=== PATIENT | male | born 1975 | race Caucasian/White ===

== ENCOUNTER 2016-07-04 10:53 | Inpatient (IN) | payer OTHER ==
[2016-07-04 11:06] VITALS: BMI 30.2
--- NOTE | 2016-07-04 13:43 | HP ---
Admission [facility] Chief Complaint: I need to stop using now. Allergies/Adverse Reactions: Allergies Allergy/AdvReac Type Severity Reaction Status Date / Time No Known Allergies Allergy Verified 07/04/16 13:34 History of Present Illness: pt is a 40yr old male with a history crack/cocaine and cannabis dependence seeking rehab for treatment. Exam Limitations: No Limitations - Ebola screening Have you traveled outside of the country in the last 21 days: No Have you had contact with anyone from an Ebola affected area: No Have you been sick,other than usual withdrawal symptoms: No Do you have a fever: No - Review of Systems Constitutional: Loss of Appetite, Night Sweats, Unintentional Wgt. Loss EENT: reports: No Symptoms Reported Respiratory: reports: Cough Cardiac: reports: No Symptoms Reported GI: reports: Poor Appetite, Poor Fluid Intake : reports: No Symptoms Reported Musculoskeletal: reports: No Symptoms Reported Integumentary: reports: No Symptoms Reported Neuro: reports: No Symptoms reported Endocrine: reports: No Symptoms Reported Hematology: reports: No Symptoms Reported Psychiatric: reports: Judgement Intact, Mood/Affect Appropiate, Orientated x3, Agitated, Anxious Other Systems: Reviewed and Negative Patient History - Patient Medical History Hx Anemia: No Hx Asthma: No Hx Chronic Obstructive Pulmonary Disease (COPD): No Hx Cancer: No Hx Cardiac Disorders: No Hx Congestive Heart Failure: No Hx Hypertension: No Hx Hypercholesterolemia: No Hx Pacemaker: No HX Cerebrovascular Accident: No Hx Seizures: No Hx Dementia: No Hx Diabetes: No Hx Gastrointestinal Disorders: No Hx Liver Disease: No Hx Genitourinary Disorders: No Hx Sexually Transmitted Disorders: No Hx Renal Disease (ESRD): No Hx Thyroid Disease: No Hx Human Immunodeficiency Virus (HIV): No (negative) Hx Hepatitis C: No (negative) Hx Depression: No Hx Suicide Attempt: No Hx Bipolar Disorder: No Hx Schizophrenia: Yes (schizoaffective disorder) - Patient Surgical History Past Surgical History: No Hx Neurologic Surgery: No Hx Cataract Extraction: No Hx Cardiac Surgery: No Hx Lung Surgery: No Hx Breast Surgery: No Hx Breast Biopsy: No Hx Abdominal Surgery: No Hx Appendectomy: No Hx Cholecystectomy: No Hx Genitourinary Surgery: No Hx Orthopedic Surgery: No Anesthesia Reaction: No - PPD History Previous Implant?: Yes Date: 01/22/16 PPD to be Administered?: No - Reproductive History Patient is a Female of Child Bearing Age (11 -55 yrs old): Yes - Smoking Cessation Smoking history: Current every day smoker Have you smoked in the past 12 months: Yes Aproximately how many cigarettes per day: 10 Hx Chewing Tobacco Use: No Initiated information on smoking cessation: Yes 'Breaking Loose' booklet given: 07/04/16 - Substance & Tx. History Hx Alcohol Use: No Hx Substance Use: Yes Substance Use Type: Cocaine Family Disease History - Family Disease History Family Disease History: Other: Son (23 YEARS OLD HEALTHY) Admission Physical Exam [facility] - Vital Signs Vital Signs: Vital Signs - 24 hr 07/04/16 10:57 Temperature 97.5 F L Pulse Rate 79 Respiratory 18 Rate Blood Pressure 108/70 - Physical General Appearance: Yes: Appropriately Dressed, Moderate Distress, Obese, Tremorous, Irritable, Sweating, Anxious HEENTM: Yes: Normal Voice Respiratory: Yes: Lungs Clear, Normal Breath Sounds, No Respiratory Distress Neck: Yes: No masses,lesions,Nodules Breast: Yes: Within Normal Limits, Axillae without masses, No Discharge, No masses Cardiology: Yes: Regular Rhythm, Regular Rate, S1, S2 Abdominal: Yes: Normal Bowel Sounds, Non Tender, Soft Genitourinary: Yes: Within Normal Limits Back: Yes: Normal Inspection Musculoskeletal: Yes: full range of Motion Extremities: Yes: Normal Capillary Refill, Normal Inspection, Non-Tender, Tremors Neurological: Yes: Fully Oriented, Alert, Normal Response Integumentary: Yes: Normal Color Lymphatic: Yes: Within Normal Limits - Diagnostic (1) Cannabis dependence Current Visit: Yes Status: Chronic (2) Crack cocaine use Current Visit: Yes Status: Chronic (3) Nicotine dependence Current Visit: Yes Status: Chronic Qualifiers: Nicotine product type: cigarettes Substance use status: uncomplicated Qualified Code(s): F17.210 - Nicotine dependence, cigarettes, uncomplicated (4) Schizoaffective disorder Current Visit: Yes Status: Chronic Cleared for Admission [facility] - Detox or Rehab [facility] Level of Care: Medically Managed Claeared for Rehab Admission: Yes [facility] Breath Alcohol Content Breath Alcohol Content: 0 Urine Drug Screen - Results Drug Screen Negative: No Urine Drug Screen Results: THC-Marijuana
[2016-07-04] MEDS ORDERED: NICOTINE POLACRILEX 4 MG GUM BUC PRN (13:48)
[2016-07-04] MEDS ORDERED: MENTHOL/PHENOL 1 EACH UD MM PRN (13:48)
[2016-07-04] MEDS ORDERED: IBUPROFEN 400 MG TABLET (FP) PO PRN (13:48)
[2016-07-04] MEDS ORDERED: LOPERAMIDE HCL 2 MG CAPSULE PO PRN (13:48)
[2016-07-04] MEDS ORDERED: ACETAMINOPHEN 325 MG TABLET (FP) PO PRN (13:48)
[2016-07-04] MEDS ORDERED: MAGNESIUM HYDROX 2400MG/30ML ORAL SUSPENSION 30 ML CUP PO PRN (13:48)
[2016-07-04] MEDS ORDERED: P-EPHED 60MG/TRIPROLIDI 2.5MG TABLET PO PRN (13:48)
[2016-07-04] MEDS ORDERED: guaiFENesin/D-METHORPHAN HB 10 ML UNIT-DOSE CUPS PO PRN (13:48)
[2016-07-04] MEDS ORDERED: MAGNESIUM CITRATE 300 ML BOTTLE PO PRN (13:48)
[2016-07-04] MEDS ORDERED: hydrOXYzine PAMOATE 50 MG CAPSULE (FP) PO PRN (13:48)
[2016-07-04 16:27] LABS: MCH 30.3 pg (25.7-33.7); MCHC 33.2 g/dl (32.0-35.9); MEAN CELL VOLUME 91.3 fl (80-96); MEAN PLT VOLUME 8.4 fl (7.5-11.1); PLATELET COUNT 271 K/MM3 (134-434); RDW 14.3 % (11.9-15.9); WHITE BLOOD COUNT 7.9 K/mm3 (4.0-10.0)
[2016-07-04 16:50] LABS: ALK PHOS 56 U/L (45-117); ANION GAP 10 (8-16); BILIRUBIN,TOTAL 0.5 mg/dL (0.2-1.0); CALCIUM 8.8 mg/dL (8.5-10.1); CO2 26 mmol/L (21-32); CREATININE 1.2 mg/dL (0.7-1.3); GLUCOSE,RANDOM 78 mg/dL (74-106); SGOT/AST 15 U/L (15-37); SGPT/ALT 22 U/L (12-78); TOT PROT 7.2 g/dl (6.4-8.2)
[2016-07-04 20:29] LABS: URINE APPEARANCE CLEAR; URINE BILIRUBIN NEGATIVE (NEGATIVE); URINE BLOOD NEGATIVE (NEGATIVE); URINE COLOR LTYELLOW; URINE GLUCOSE (UA) NEGATIVE (NEGATIVE); URINE KETONE NEGATIVE (NEGATIVE); URINE LEUK ESTERASE NEGATIVE (NEGATIVE); URINE NITRITE NEGATIVE (NEGATIVE); URINE PROTEIN NEGATIVE (NEGATIVE); URINE UROBILINOGEN NEGATIVE E.U./dl (0.2-1.0)
[2016-07-04] MEDS: LITHIUM CARBONATE 300 MG CAPSULE (FP) PO SCH (21:57)
[2016-07-04] MEDS: BENZTROPINE MESYLATE 1 MG TABLET (FP) PO SCH (21:57)
[2016-07-04] MEDS: THIAMINE HCL 100 MG TABLET (FP) PO SCH (21:57)
[2016-07-04] MEDS: diphenhydrAMINE HCL 50 MG CAPSULE PO PRN (21:59)
[2016-07-05] MEDS: PRENATAL VITAMINS W/ FOLIC ACID TABLET (FP) PO SCH (10:21)
[2016-07-05] MEDS: NICOTINE 21 MG/24 HOURS TOPICAL PATCH TD SCH (10:21)
[2016-07-05] MEDS: LITHIUM CARBONATE 300 MG CAPSULE (FP) PO SCH ×2 (10:21→21:45)
[2016-07-05] MEDS: BENZTROPINE MESYLATE 1 MG TABLET (FP) PO SCH ×2 (10:21→21:46)
--- NOTE | 2016-07-05 13:32 | HP ---
Psychiatrist Admission - Data Date of interview: 07/05/16 Admission source: [facility] Identifying data: This is the second inpatient rehabilitation admission for this 40 year old sinle male father of 23 year old son, who is unemployed and on SSI,SSD residing alone in [facility] [place] [facility]. Medical History: Reports a good physical health, smokes 10 cigarettes a day. Psychiatric History: Patient reports first psychiatric hospitalization was at age of 21, reports he was working in [employer], "music was loud in the store, I thought I have a special power", reports he started to hear voices at the same time, he heard his in law voices telling him "give her money ". Patient reports mutliple psyhiatric hospitalizations with most recently visited [facility] ER to "get my injection". He under the care of ACT team in the [place] ([phone]). He currently on [place] 600 mg po bid, Cogentin 1 mg po bid and ProlxinDecanoate IM q 2 week, patient was not sure the dosage, ACT team was contacted by undersigned and spoke with the nurse who verified that patient gets Prolixin 62.5 mg q 2weeks and he had it on 06/28/16 next is due on 07/13/16. Patient reports last time he heard voices was 06/28, he is paranoid and thinks that his in-laws still controling him. Patient admits one suicidal attaempt as cutting his wrist and "had 3 stitches" admited to [facility]. HE sees [facility] , reports was diagnosed as Schizoaffective disorder. Physical/Sexual Abuse/Trauma History: Denies history of sexual, physical and verbal abuse. Vital Signs: Vital Signs - 24 hr 07/04/16 07/05/16 07/05/16 15:37 00:41 03:35 Temperature 98 F Pulse Rate 81 68 68 Respiratory 18 16 16 Rate Blood Pressure 114/69 07/05/16 06:59 Temperature 98.3 F Pulse Rate 73 Respiratory 18 Rate Blood Pressure 128/76 Allergies/Adverse Reactions: Allergies Allergy/AdvReac Type Severity Reaction Status Date / Time No Known Allergies Allergy Verified 07/04/16 15:37 Date of last physical exam: 07/04/16 Concur with the findings of this exam: Yes - Substance Abuse/Tx History Hx Alcohol Use: No Hx Substance Use: Yes (reports he just tried cocaine with his friend 10 bags "I don't like it") Substance Use Type: Cocaine, Marijuana (daily us) Hx Substance Use Treatment: Yes - Admission Criteria Previous failed treatment: Yes Poor recovery environment: Yes Comorbidities: Yes Lacks judgement: Yes Mental Status Exam - Mental Status Exam Alert and Oriented to: Time, Place, Person Cognitive Function: Grossly Intact Patient Appearance: Unkempt Mood: Anxious Affect: Appropriate, Mood Congruent Patient Behavior: Appropriate, Cooperative Speech Pattern: Clear, Appropriate Voice Loudness: Normal Thought Process: Goal Oriented Thought Disorder: Paranoid Ideation ("they controling me, I cant have any relationship".), Delusional ("in-laws watching thought my eyes") Hallucinations: Denies Suicidal Ideation: Denies Homicidal Ideation: Denies Insight/Judgement: Fair Sleep: Fair Appetite: Fair Muscle strength/Tone: Normal Gait/Station: Normal Psychiatric Findings - Problem List ([place] 1, 2,3) (1) Cannabis dependence Current Visit: Yes Status: Chronic (2) Crack cocaine use Current Visit: Yes Status: Chronic (3) Nicotine dependence Current Visit: Yes Status: Chronic Qualifiers: Nicotine product type: cigarettes Substance use status: uncomplicated Qualified Code(s): F17.210 - Nicotine dependence, cigarettes, uncomplicated (4) Schizoaffective disorder Current Visit: Yes Status: Chronic - Initial Treatment Plan Initial Treatment Plan: blood in am for Stone Creek level, Propixin Decanoate on 07/13 , continue to monitor progress as needed.
--- NOTE | 2016-07-05 14:26 | EKG ---
Test Reason : Blood Pressure : / mmHG Vent. Rate : 079 BPM Atrial Rate : 079 BPM P-R Int : 154 ms QRS Dur : 094 ms QT Int : 360 ms P-R-T Axes : 072 063 056 degrees QTc Int : 412 ms NORMAL SINUS RHYTHM NORMAL ECG NO PREVIOUS ECGS AVAILABLE Confirmed by YOLANDA MUÑOZ MD ([id number]) on 07/05/2016 2:25:53 PM Referred By: Confirmed By:YOLANDA MUÑOZ MD
[2016-07-05] MEDS: diphenhydrAMINE HCL 50 MG CAPSULE PO PRN (21:46)
[2016-07-05] MEDS: THIAMINE HCL 100 MG TABLET (FP) PO SCH (21:46)
[2016-07-06] MEDS: NICOTINE 21 MG/24 HOURS TOPICAL PATCH TD SCH (09:55)
[2016-07-06] MEDS: BENZTROPINE MESYLATE 1 MG TABLET (FP) PO SCH ×2 (09:55→21:53)
[2016-07-06] MEDS: PRENATAL VITAMINS W/ FOLIC ACID TABLET (FP) PO SCH (09:55)
[2016-07-06] MEDS: LITHIUM CARBONATE 300 MG CAPSULE (FP) PO SCH ×2 (09:55→21:53)
[2016-07-06] MEDS: MAG HYDROX/AL HYDROX/SIMETH 30 ML UNIT-DOSE CUP PO PRN (15:59)
[2016-07-06] MEDS: THIAMINE HCL 100 MG TABLET (FP) PO SCH (21:53)
[2016-07-07 06:07] LABS: LITHIUM 0.6 mmol/L (0.6-1.4)
[2016-07-07] MEDS: MAG HYDROX/AL HYDROX/SIMETH 30 ML UNIT-DOSE CUP PO PRN (08:12)
[2016-07-07] MEDS: LITHIUM CARBONATE 300 MG CAPSULE (FP) PO SCH ×2 (09:38→21:25)
[2016-07-07] MEDS: PRENATAL VITAMINS W/ FOLIC ACID TABLET (FP) PO SCH (09:38)
[2016-07-07] MEDS: BENZTROPINE MESYLATE 1 MG TABLET (FP) PO SCH ×2 (09:38→21:25)
[2016-07-07] MEDS: NICOTINE 21 MG/24 HOURS TOPICAL PATCH TD SCH (09:38)
[2016-07-07] MEDS: THIAMINE HCL 100 MG TABLET (FP) PO SCH (21:25)
[2016-07-08] MEDS: MAG HYDROX/AL HYDROX/SIMETH 30 ML UNIT-DOSE CUP PO PRN (08:28)
[2016-07-08] MEDS: BENZTROPINE MESYLATE 1 MG TABLET (FP) PO SCH ×2 (09:42→21:45)
[2016-07-08] MEDS: LITHIUM CARBONATE 300 MG CAPSULE (FP) PO SCH ×2 (09:42→21:45)
[2016-07-08] MEDS: PRENATAL VITAMINS W/ FOLIC ACID TABLET (FP) PO SCH (09:42)
[2016-07-08] MEDS: NICOTINE 21 MG/24 HOURS TOPICAL PATCH TD SCH (09:43)
[2016-07-08] MEDS: THIAMINE HCL 100 MG TABLET (FP) PO SCH (21:45)
[2016-07-09] MEDS: MAG HYDROX/AL HYDROX/SIMETH 30 ML UNIT-DOSE CUP PO PRN ×2 (06:28→21:49)
[2016-07-09] MEDS: LITHIUM CARBONATE 300 MG CAPSULE (FP) PO SCH ×2 (10:13→21:47)
[2016-07-09] MEDS: BENZTROPINE MESYLATE 1 MG TABLET (FP) PO SCH ×2 (10:13→21:47)
[2016-07-09] MEDS: PRENATAL VITAMINS W/ FOLIC ACID TABLET (FP) PO SCH (10:13)
[2016-07-09] MEDS: NICOTINE 21 MG/24 HOURS TOPICAL PATCH TD SCH (10:13)
--- NOTE | 2016-07-09 15:38 | PN ---
[facility] Progress Note Note: [place] blood result noted, 0.6 WNL, discussed result with the patient. Continue to monitor progress
[2016-07-09] MEDS: THIAMINE HCL 100 MG TABLET (FP) PO SCH (21:47)
[2016-07-10] MEDS: PRENATAL VITAMINS W/ FOLIC ACID TABLET (FP) PO SCH (10:23)
[2016-07-10] MEDS: LITHIUM CARBONATE 300 MG CAPSULE (FP) PO SCH ×2 (10:23→22:01)
[2016-07-10] MEDS: BENZTROPINE MESYLATE 1 MG TABLET (FP) PO SCH ×2 (10:23→22:01)
[2016-07-10] MEDS: NICOTINE 21 MG/24 HOURS TOPICAL PATCH TD SCH (10:23)
[2016-07-10] MEDS: THIAMINE HCL 100 MG TABLET (FP) PO SCH (22:01)
[2016-07-11] MEDS: MAG HYDROX/AL HYDROX/SIMETH 30 ML UNIT-DOSE CUP PO PRN ×2 (00:17→15:15)
[2016-07-11] MEDS: diphenhydrAMINE HCL 50 MG CAPSULE PO PRN (00:26)
[2016-07-11] MEDS: PRENATAL VITAMINS W/ FOLIC ACID TABLET (FP) PO SCH (10:12)
[2016-07-11] MEDS: NICOTINE 21 MG/24 HOURS TOPICAL PATCH TD SCH (10:13)
[2016-07-11] MEDS: LITHIUM CARBONATE 300 MG CAPSULE (FP) PO SCH ×2 (10:13→21:23)
[2016-07-11] MEDS: BENZTROPINE MESYLATE 1 MG TABLET (FP) PO SCH ×2 (10:13→21:23)
[2016-07-11] MEDS: THIAMINE HCL 100 MG TABLET (FP) PO SCH (21:23)
[2016-07-12] MEDS: BENZTROPINE MESYLATE 1 MG TABLET (FP) PO SCH ×2 (09:52→21:35)
[2016-07-12] MEDS: NICOTINE 21 MG/24 HOURS TOPICAL PATCH TD SCH (09:52)
[2016-07-12] MEDS: PRENATAL VITAMINS W/ FOLIC ACID TABLET (FP) PO SCH (09:52)
[2016-07-12] MEDS: LITHIUM CARBONATE 300 MG CAPSULE (FP) PO SCH ×2 (09:52→21:34)
[2016-07-12] MEDS ORDERED: fluPHENAZine DECANOATE 125 MG/5ML VIAL IM ONE (10:00)
[2016-07-12] MEDS: MAG HYDROX/AL HYDROX/SIMETH 30 ML UNIT-DOSE CUP PO PRN (18:05)
[2016-07-12] MEDS: THIAMINE HCL 100 MG TABLET (FP) PO SCH (21:35)
[2016-07-13 07:02] VITALS: BP 129/71; PULSE 75; TEMP 98.5
--- NOTE | 2016-07-13 09:40 | PN ---
Psychiatric Progress Note Vital Signs: Vital Signs Period Temp Pulse Resp BP Sys/Myers Pulse Ox Last 24 Hr 98.5 F 75 18-20 129/71 Date of Session: 07/13/16 Chief Complaint:: discharge visit HPI: Patient has addressed cocaine, cannabis, nicotine dependence comorbid Schizoaffective disorder. ROS: WNL Current Medications: Active Medications Generic Name Dose Route Start Last Admin Trade Name Freq PRN Reason Stop Dose Admin Acetaminophen 650 mg 07/04/16 13:48 Tylenol - PO Q4H PRN PAIN Al Hydroxide/Mg Hydroxide 30 ml 07/04/16 13:48 07/12/16 18:05 Mylanta Oral Suspension - PO 30 ml Q6H PRN Administration DYSPEPSIA Benztropine Mesylate 1 mg 07/04/16 22:00 07/12/16 21:35 Cogentin - PO 1 mg BID TRIP Administration Diphenhydramine HCl 50 mg 07/04/16 13:48 07/11/16 00:26 Benadryl - PO 50 mg HSMR1 PRN Administration INSOMNIA Eucalyptus/Menthol/Phenol/Sorbitol 1 each 07/04/16 13:48 Cepastat Lozenge - MM Q4H PRN SORE THROAT Guaifenesin 10 ml 07/04/16 13:48 Robitussin Dm - PO Q6H PRN COUGH Hydroxyzine Pamoate 50 mg 07/04/16 13:48 07/08/16 08:19 Vistaril - PO 50 mg Q4H PRN Administration AGITATION Ibuprofen 400 mg 07/04/16 13:48 Motrin - PO Q6H PRN SEVERE PAIN [place] Carbonate 600 mg 07/04/16 22:00 07/12/16 21:34 Eskalith - PO 600 mg BID TRIP Administration Loperamide HCl 4 mg 07/04/16 13:48 Imodium - PO Q6H PRN DIARRHEA Magnesium Citrate 300 ml 07/04/16 13:48 Citroma - PO Q48H PRN CONSTIPATION Magnesium Hydroxide 30 ml 07/04/16 13:48 07/06/16 21:54 Milk Of Magnesia - PO 30 ml DAILY PRN Administration CONSTIPATION Nicotine 21 mg 07/05/16 10:00 07/12/16 09:52 Nicoderm Patch - TD 21 mg DAILY TRIP Administration Nicotine Polacrilex 4 mg 07/04/16 13:48 Nicorette Gum - BUC Q2H PRN NICOTINE REPLACEMENT RX Multivit/Folic Acid/Iron 1 tab 07/05/16 10:00 07/12/16 09:52 Vitamins (Sjr) - PO 1 tab DAILY TRIP Administration Pseudoephedrine/Triprolidine 1 combo 07/04/16 13:48 Actifed - PO TID PRN NASAL CONGESTION Thiamine HCl 100 mg 07/04/16 22:00 07/12/16 21:35 Vitamin B1 - PO 100 mg HS TRIP Administration Current Side Effect: No Lab tests ordered: No Lab tests reviewed: Yes Provider note:: Patient has completed today his treatment and met his goals, will continue to address hs issues at [facility] outpatient treatment program. Patient verbalized his motivations to continue maintain absitnence and follow up with his psychiatric appointments. Patient reports feeling well, he had his Prolixin Decanoate 62.5 mg injection on 07/12/16, next due in 2 weeks, lithium level was done on 07/06 and 0.6 wnl, patient was encoiraged to f/u with his psychiatrist , srcipts transferred to his pharmacy, patient is stable for discharge today. Total face to face time:: 35 Mental Status Exam - Mental Status Exam Alert and Oriented to: Time, Place, Person Cognitive Function: Good Patient Appearance: Well Groomed Mood: Hopeful Affect: Appropriate, Mood Congruent Patient Behavior: Appropriate, Cooperative Speech Pattern: Clear, Appropriate Voice Loudness: Normal Thought Process: Intact Thought Disorder: Not Present Hallucinations: Denies Suicidal Ideation: Denies Homicidal Ideation: Denies Insight/Judgement: Fair Sleep: Fair Appetite: Fair Muscle strength/Tone: Normal Gait/Station: Normal Psychiatric Treatment Plan - Problem List (1) Cannabis dependence Current Visit: Yes (2) Crack cocaine use Current Visit: Yes (3) Nicotine dependence Current Visit: Yes Qualifiers: Nicotine product type: cigarettes Substance use status: uncomplicated Qualified Code(s): F17.210 - Nicotine dependence, cigarettes, uncomplicated (4) Schizoaffective disorder Current Visit: Yes
[2016-07-13] MEDS: NICOTINE 21 MG/24 HOURS TOPICAL PATCH TD SCH (09:51)
[2016-07-13] MEDS: LITHIUM CARBONATE 300 MG CAPSULE (FP) PO SCH (09:51)
[2016-07-13] MEDS: BENZTROPINE MESYLATE 1 MG TABLET (FP) PO SCH (09:51)
[2016-07-13] MEDS: PRENATAL VITAMINS W/ FOLIC ACID TABLET (FP) PO SCH (09:51)
== END 2016-07-13 11:00 | disposition home or self-care (01) | DRG 895 ==
LOC: YASAS 10:53 → Y5N 14:40
PROVIDERS: ADMIT Psychiatry & Neurology Psychiatry; ATTEND Psychiatry & Neurology Psychiatry
PROC: HZ42ZZZ Group Counseling for Substance Abuse Treatment, Cognitive-Behavioral (ICD-10-PCS; principal; 2016-07-13)
DX: F12.20 Cannabis dependence, uncomplicated (principal); F17.210 Nicotine dependence, cigarettes, uncomplicated; F14.10 Cocaine abuse, uncomplicated; F25.9 Schizoaffective disorder, unspecified
CPT/HCPCS: 36415; 80053; 80178; 81003; 85027; 86593; 93005; 93010

== ENCOUNTER 2016-11-28 11:17 | Inpatient (IN) | payer OTHER ==
[2016-11-28 11:35] VITALS: BMI 30.5
--- NOTE | 2016-11-28 13:49 | HP ---
CIWA Score - CIWA Score Nausea/Vomitin-No Nausea/No Vomiting Muscle Tremors: 3 Anxiety: 4-Mod. Anxious/Guarded Agitation: 4-Moderately Restless Paroxysmal Sweats: 1-Minimal Palms Moist Orientation: 0-Oriented Tacttile Disturbances: 3-Moderate Itch/Numb/Burn Auditory Disturbances: 0-None Visual Disturbances: 0-None Headache: 0-None Present CIWA-Ar Total Score: 15 Admission ROS [facility] - HPI Chief Complaint: DETOX TX FOR ALCOHOL DEPENDENCE Allergies/Adverse Reactions: Allergies Allergy/AdvReac Type Severity Reaction Status Date / Time No Known Allergies Allergy Verified 11/28/16 12:26 History of Present Illness: 41 Y/O MALE WITH A HX OF ALCOHOL,COCAINE AND MARIJUANA DEPENDENCE SEEKING DETOX [place] Exam Limitations: No Limitations - Ebola screening Have you traveled outside of the country in the last 21 days: No Have you had contact with anyone from an Ebola affected area: No Have you been sick,other than usual withdrawal symptoms: No Do you have a fever: No - Review of Systems Constitutional: No Symptoms Reported EENT: reports: Nose Congestion, Dental Problems ([place]) Respiratory: reports: No Symptoms reported Cardiac: reports: Lightheadedness GI: reports: Diarrhea, Nausea, Poor Fluid Intake, Vomiting : reports: Frequency Musculoskeletal: reports: No Symptoms Reported Integumentary: reports: No Symptoms Reported Neuro: reports: Headache, Tremors, Unsteady Gait, Dizziness Endocrine: reports: No Symptoms Reported Hematology: reports: No Symptoms Reported Psychiatric: reports: Orientated x3, Anxious, other (HX SCHIZOAFFECTIVE DISORDER -ON PROLIXIN INJ [id number]; LAST DOSE ON 11/26/16) Other Systems: Reviewed and Negative Patient History - Patient Medical History Hx Anemia: No Hx Asthma: No Hx Chronic Obstructive Pulmonary Disease (COPD): No Hx Cancer: No Hx Cardiac Disorders: No Hx Congestive Heart Failure: No Hx Hypertension: No Hx Hypercholesterolemia: No Hx Pacemaker: No HX Cerebrovascular Accident: No Hx Seizures: No Hx Dementia: No Hx Diabetes: No Hx Gastrointestinal Disorders: No Hx Liver Disease: No Hx Genitourinary Disorders: No Hx Sexually Transmitted Disorders: No (DENIES) Hx Renal Disease (ESRD): No Hx Thyroid Disease: No Hx Human Immunodeficiency Virus (HIV): No (NEGATIVE HX) Hx Hepatitis C: No (negative) Hx Depression: No Hx Suicide Attempt: No Hx Bipolar Disorder: No Hx Schizophrenia: Yes (schizoaffective disorder) - Patient Surgical History Past Surgical History: No Hx Neurologic Surgery: No Hx Cataract Extraction: No Hx Cardiac Surgery: No Hx Lung Surgery: No Hx Breast Surgery: No Hx Breast Biopsy: No Hx Abdominal Surgery: No Hx Appendectomy: No Hx Cholecystectomy: No Hx Genitourinary Surgery: No Hx Orthopedic Surgery: No Anesthesia Reaction: No - PPD History Previous Implant?: Yes Documented Results: Negative w/proof Implanted On Prior [facility] Admission?: Yes Date: 01/22/16 Results: 0 mm PPD to be Administered?: No - Reproductive History Patient is a Female of Child Bearing Age (11 -55 yrs old): No (MALE) - Smoking Cessation Smoking history: Current every day smoker Have you smoked in the past 12 months: Yes Aproximately how many cigarettes per day: 20 Cigars Per Day: 0 Hx Chewing Tobacco Use: No Initiated information on smoking cessation: Yes 'Breaking Loose' booklet given: 11/28/16 - Substance & Tx. History Hx Alcohol Use: Yes (COGNAC/BEER) Hx Substance Use: Yes (COCAINE/MARIJUANA) Substance Use Type: Alcohol, Cocaine, Marijuana Hx Substance Use Treatment: Yes (LAST TX AT [facility]) - Substances Abused Cocaine Route: Inhalation Frequency: Daily Amount used: $60-100 Age of first use: 21 Date of Last Use: 11/27/16 Alcohol-cognac/beer Route: Oral Frequency: Daily Amount used: 2 pts./1-6 pk. Age of first use: 21 Date of Last Use: 11/27/16 Marijuana Route: Smoking Frequency: Daily Amount used: $10 Age of first use: 16 Date of Last Use: 11/27/16 Family Disease History - Family Disease History Family Disease History: Diabetes: Mother (HTN), CA: Grandparent (MGF-COLON CANCER-), Other: Mother Admission Physical Exam S - Vital Signs Vital Signs: Vital Signs - 24 hr 11/28/16 11:32 Temperature 97.3 F L Pulse Rate 77 Respiratory 18 Rate Blood Pressure 127/78 - Physical General Appearance: Yes: Moderate Distress, Irritable, Anxious HEENTM: Yes: EOMI, Normocephalic, JOSE CRUZ, Pharynx Normal Respiratory: Yes: Chest Non-Tender, Lungs Clear, Normal Breath Sounds, No Respiratory Distress Neck: Yes: Supple, Trachea in good position Breast: Yes: Breast Exam Deferred Cardiology: Yes: Regular Rhythm, Regular Rate, S1, S2 Abdominal: Yes: Normal Bowel Sounds, Non Tender, Soft Genitourinary: Yes: Other (N/C) Back: Yes: Within Normal Limits Musculoskeletal: Yes: full range of Motion, Gait Steady Extremities: Yes: Normal Range of Motion, Non-Tender Neurological: Yes: oil program compliance specialist II-XII NML intact, Fully Oriented, Alert Integumentary: Yes: Dry, Warm Lymphatic: Yes: Within Normal Limits - Diagnostic (1) Nicotine dependence Current Visit: Yes Status: Acute Qualifiers: Nicotine product type: cigarettes Substance use status: in withdrawal Qualified Code(s): F17.213 - Nicotine dependence, cigarettes, with withdrawal (2) Alcohol dependence with uncomplicated withdrawal Current Visit: Yes Status: Acute (3) Crack cocaine use Current Visit: No Status: Suspected (4) Cannabis dependence, uncomplicated Current Visit: Yes Status: Acute Cleared for Admission [facility] - Detox or Rehab [facility] Level of Care: Medically Managed Detox Regimen/Protocol: Librium [facility] Breath Alcohol Content Breath Alcohol Content: 0 Urine Drug Screen - Results Drug Screen Negative: No Urine Drug Screen Results: THC-Marijuana
[2016-11-28] MEDS ORDERED: ACETAMINOPHEN 325 MG TABLET (FP) PO PRN (14:03)
[2016-11-28] MEDS ORDERED: P-EPHED 60MG/TRIPROLIDI 2.5MG TABLET PO PRN (14:03)
[2016-11-28] MEDS ORDERED: IBUPROFEN 400 MG TABLET (FP) PO PRN (14:03)
[2016-11-28] MEDS ORDERED: MENTHOL/PHENOL 1 EACH UD MM PRN (14:03)
[2016-11-28] MEDS ORDERED: MAGNESIUM HYDROX 2400MG/30ML ORAL SUSPENSION 30 ML CUP PO PRN (14:03)
[2016-11-28] MEDS ORDERED: NICOTINE POLACRILEX 4 MG GUM BUC PRN (14:03)
[2016-11-28] MEDS ORDERED: LOPERAMIDE HCL 2 MG CAPSULE PO PRN (14:03)
[2016-11-28] MEDS ORDERED: guaiFENesin/D-METHORPHAN HB 10 ML UNIT-DOSE CUPS PO PRN (14:03)
[2016-11-28] MEDS ORDERED: chlordiazePOXIDE HCL 25 MG CAPSULE PO PRN (14:03)
[2016-11-28] MEDS ORDERED: MAGNESIUM CITRATE 300 ML BOTTLE PO PRN (14:03)
[2016-11-28] MEDS ORDERED: MAG HYDROX/AL HYDROX/SIMETH 30 ML UNIT-DOSE CUP PO PRN (14:03)
[2016-11-28] MEDS ORDERED: chlordiazePOXIDE HCL 25 MG CAPSULE PO ONE (14:27)
[2016-11-28] MEDS: NICOTINE 21 MG/24 HOURS TOPICAL PATCH TD SCH (14:48)
--- NOTE | 2016-11-28 15:28 | CONSULT ---
[facility] Psychiatric Consult - Data Date of interview: 11/28/16 Admission source: [facility] Identifying data: This is 41 yo H single father of 23 yo son,resides in Supportive Housing,on SSD and SSI benefits admitted for Alcohol,Cocaine and Cannabis dependence. Substance Abuse History: Reports drinking since 21 yo ,i pint of vodka,6 packs of beer daily.Cocaine since 21 yo,spending $60-100 daily and marijuana since 16 yo daily. Medical History: unremarkable. Psychiatric History: Sees psychiatrist since 21 yo when he lost his job, housing.Patient waqs admitted to [facility] and dx with Schizoaffective disorder.Patient reports multiple psychiatric admissions(about 10?).Most recent was about 7 years ago to [facility] .He sees psychiatrist at [facility] ACT Team in the [place].patient is on prolixin Decanoate IM 62 ,5 mg monthly.Most recent injection was 1 week ago.patient is on Cogentin 0,5 mg po daily. Physical/Sexual Abuse/Trauma History: denies Mental Status Exam - Mental Status Exam Alert and Oriented to: Time, Place, Person Cognitive Function: Grossly Intact Patient Appearance: Unkempt Mood: Euthymic Affect: Appropriate, Mood Congruent Patient Behavior: Cooperative Speech Pattern: Clear Voice Loudness: Normal Thought Process: Goal Oriented Hallucinations: Denies Suicidal Ideation: Denies Homicidal Ideation: Denies Insight/Judgement: Fair Sleep: Fair Appetite: Good Muscle strength/Tone: Normal Gait/Station: Normal Psychiatric Findings - Problem List ([place] 1, 2,3) (1) Alcohol dependence with uncomplicated withdrawal Current Visit: Yes Status: Chronic (2) Cannabis dependence, uncomplicated Current Visit: Yes Status: Chronic (3) Nicotine dependence Current Visit: Yes Status: Chronic Qualifiers: Nicotine product type: cigarettes Substance use status: in withdrawal Qualified Code(s): F17.213 - Nicotine dependence, cigarettes, with withdrawal (4) Schizoaffective disorder Current Visit: Yes Status: Chronic (5) Crack cocaine use Current Visit: Yes Status: Suspected - Initial Treatment Plan Initial Treatment Plan: Continue Cogentin 0,5 mg po daily.Next prolixin injection will be in 3 weeks. will monitor progress.
[2016-11-28] MEDS: chlordiazePOXIDE HCL 25 MG CAPSULE PO SCH ×2 (16:53→22:19)
[2016-11-28 18:20] LABS: URINE APPEARANCE CLEAR; URINE BILIRUBIN NEGATIVE (NEGATIVE); URINE BLOOD NEGATIVE (NEGATIVE); URINE COLOR COLORLESS; URINE GLUCOSE (UA) NEGATIVE (NEGATIVE); URINE KETONE NEGATIVE (NEGATIVE); URINE LEUK ESTERASE NEGATIVE (NEGATIVE); URINE NITRITE NEGATIVE (NEGATIVE); URINE PROTEIN NEGATIVE (NEGATIVE); URINE UROBILINOGEN NEGATIVE E.U./dl (0.2-1.0)
[2016-11-28] MEDS: THIAMINE HCL 100 MG TABLET (FP) PO SCH (22:18)
[2016-11-28] MEDS: BENZTROPINE MESYLATE 1 MG TABLET (FP) PO SCH (22:19)
[2016-11-29] MEDS: chlordiazePOXIDE HCL 25 MG CAPSULE PO SCH ×4 (06:07→23:03)
[2016-11-29 09:06] LABS: HIV 1 & 2 AB NEGATIVE; HIV 1 AGp24 NEGATIVE
--- NOTE | 2016-11-29 09:49 | PN ---
[facility] CIWA - CIWA Score Nausea/Vomitin-No Nausea/No Vomiting Muscle Tremors: 4-Moderate,w/Arms Extend Anxiety: 4-Mod. Anxious/Guarded Agitation: 4-Moderately Restless Paroxysmal Sweats: 1-Minimal Palms Moist Orientation: 0-Oriented Tacttile Disturbances: 2-Mild Itch/Numbness/Burn Auditory Disturbances: 0-None Visual Disturbances: 0-None Headache: 0-None Present CIWA-Ar Total Score: 15 [facility] Progress Note (SOAP) Subjective: SWEATS,TREMORS,SLIGHT ANXIETY. Objective: 11/29/16 09:49 Vital Signs Temperature 97.3 F L 11/29/16 06:48 Pulse Rate 69 11/29/16 06:48 Respiratory Rate 18 11/29/16 06:48 Blood Pressure 119/80 11/29/16 06:48 O2 Sat by Pulse Oximetry (%) Laboratory Last Values Urine Color Colorless 11/28/16 15:00 Urine Appearance Clear 11/28/16 15:00 Urine pH 8.0 (5.0-8.0) D 11/28/16 15:00 Ur Specific [place] 1.010 (1.005-1.025) 11/28/16 15:00 Urine Protein Negative (NEGATIVE) 11/28/16 15:00 Urine Glucose (UA) Negative (NEGATIVE) 11/28/16 15:00 Urine Ketones Negative (NEGATIVE) 11/28/16 15:00 Urine Blood Negative (NEGATIVE) 11/28/16 15:00 Urine Nitrite Negative (NEGATIVE) 11/28/16 15:00 Urine Bilirubin Negative (NEGATIVE) 11/28/16 15:00 Urine Urobilinogen Negative E.U./dl (0.2-1.0) 11/28/16 15:00 Ur Leukocyte Esterase Negative (NEGATIVE) 11/28/16 15:00 HIV 1&2 Antibody Screen Negative 11/28/16 14:00 HIV P24 Antigen Negative 11/28/16 14:00 Assessment: 11/29/16 09:49 WITHDRAWAL SX Plan: CONTINUE DETOX
[2016-11-29 10:20] LABS: MCH 30.7 pg (25.7-33.7); MCHC 33.2 g/dl (32.0-35.9); MEAN CELL VOLUME 92.6 fl (80-96); MEAN PLT VOLUME 8.8 fl (7.5-11.1); PLATELET COUNT 241 K/MM3 (134-434); RDW 13.9 % (11.9-15.9); WHITE BLOOD COUNT 7.7 K/mm3 (4.0-10.0)
[2016-11-29] MEDS: PRENATAL VITAMINS W/ FOLIC ACID TABLET (FP) PO SCH (10:22)
[2016-11-29] MEDS: NICOTINE 21 MG/24 HOURS TOPICAL PATCH TD SCH (10:22)
[2016-11-29 11:01] LABS: SICKLE CELL SCREEN NEGATIVE (NEGATIVE)
[2016-11-29 11:13] LABS: ALBUMIN 3.8 g/dl (3.4-5.0); ALK PHOS 57 U/L (45-117); ANION GAP 8 (8-16); BILIRUBIN,TOTAL 0.6 mg/dL (0.2-1.0); CALCIUM 8.7 mg/dL (8.5-10.1); CO2 29 mmol/L (21-32); GLUCOSE,RANDOM 91 mg/dL (74-106); SGOT/AST 16 U/L (15-37); SGPT/ALT 28 U/L (12-78)
--- NOTE | 2016-11-29 15:53 | EKG ---
Test Reason : Blood Pressure : / mmHG Vent. Rate : 070 BPM Atrial Rate : 070 BPM P-R Int : 154 ms QRS Dur : 080 ms QT Int : 374 ms P-R-T Axes : 063 049 040 degrees QTc Int : 403 ms NORMAL SINUS RHYTHM NORMAL ECG WHEN COMPARED WITH ECG OF 04-JUL-2016 23:09, NO SIGNIFICANT CHANGE WAS FOUND Confirmed by YOLANDA MUÑOZ MD ([id number]) on 11/29/2016 3:53:07 PM Referred By: Confirmed By:YOLANDA MUÑOZ MD
[2016-11-29] MEDS: BENZTROPINE MESYLATE 1 MG TABLET (FP) PO SCH (23:02)
[2016-11-29] MEDS: THIAMINE HCL 100 MG TABLET (FP) PO SCH (23:03)
[2016-11-30] MEDS: diphenhydrAMINE HCL 50 MG CAPSULE PO PRN ×2 (01:29→22:14)
[2016-11-30] MEDS: chlordiazePOXIDE HCL 25 MG CAPSULE PO SCH ×2 (06:06→10:17)
[2016-11-30] MEDS: PRENATAL VITAMINS W/ FOLIC ACID TABLET (FP) PO SCH (10:16)
[2016-11-30] MEDS: NICOTINE 21 MG/24 HOURS TOPICAL PATCH TD SCH (10:16)
--- NOTE | 2016-11-30 10:59 | PN ---
[facility] CIWA - CIWA Score Nausea/Vomitin-No Nausea/No Vomiting Muscle Tremors: 4-Moderate,w/Arms Extend Anxiety: 5 Agitation: 3 Paroxysmal Sweats: 1-Minimal Palms Moist Orientation: 0-Oriented Tacttile Disturbances: 3-Moderate Itch/Numb/Burn Auditory Disturbances: 0-None Visual Disturbances: 0-None Headache: 0-None Present CIWA-Ar Total Score: 16 BHS Progress Note (SOAP) Subjective: ANXIETY,SLIGHT TREMORS, SWEATS. Objective: 11/30/16 10:59 Vital Signs Temperature 97.4 F L 11/30/16 06:39 Pulse Rate 70 11/30/16 06:39 Respiratory Rate 16 11/30/16 06:39 Blood Pressure 119/87 11/30/16 06:39 O2 Sat by Pulse Oximetry (%) Laboratory Last Values WBC 7.7 K/mm3 (4.0-10.0) 11/29/16 06:00 RBC 4.54 M/mm3 (4.00-5.60) 11/29/16 06:00 Hgb 13.9 GM/dL (11.7-16.9) 11/29/16 06:00 Hct 42.0 % (35.4-49) 11/29/16 06:00 MCV 92.6 fl (80-96) 11/29/16 06:00 MCHC 33.2 g/dl (32.0-35.9) 11/29/16 06:00 RDW 13.9 % (11.9-15.9) 11/29/16 06:00 Plt Count 241 K/MM3 (134-434) 11/29/16 06:00 MPV 8.8 fl (7.5-11.1) 11/29/16 06:00 Sickle Cell Screen Negative (NEGATIVE) 11/29/16 06:00 Sodium 140 mmol/L (136-145) 11/29/16 06:00 Potassium 4.4 mmol/L (3.5-5.1) 11/29/16 06:00 Chloride 103 mmol/L (98-107) 11/29/16 06:00 Carbon Dioxide 29 mmol/L (21-32) 11/29/16 06:00 Anion Gap 8 (8-16) 11/29/16 06:00 BUN 10 mg/dL (7-18) D 11/29/16 06:00 Creatinine 1.0 mg/dL (0.7-1.3) 11/29/16 06:00 Creat Clearance w eGFR > 60 (>60) 11/29/16 06:00 Random Glucose 91 mg/dL (74-106) 11/29/16 06:00 Calcium 8.7 mg/dL (8.5-10.1) 11/29/16 06:00 Total Bilirubin 0.6 mg/dL (0.2-1.0) 11/29/16 06:00 AST 16 U/L (15-37) 11/29/16 06:00 ALT 28 U/L (12-78) D 11/29/16 06:00 Alkaline Phosphatase 57 U/L (45-117) 11/29/16 06:00 Total Protein 7.0 g/dl (6.4-8.2) 11/29/16 06:00 Albumin 3.8 g/dl (3.4-5.0) 11/29/16 06:00 Urine Color Colorless 11/28/16 15:00 Urine Appearance Clear 11/28/16 15:00 Urine pH 8.0 (5.0-8.0) D 11/28/16 15:00 Ur Specific [place] 1.010 (1.005-1.025) 11/28/16 15:00 Urine Protein Negative (NEGATIVE) 11/28/16 15:00 Urine Glucose (UA) Negative (NEGATIVE) 11/28/16 15:00 Urine Ketones Negative (NEGATIVE) 11/28/16 15:00 Urine Blood Negative (NEGATIVE) 11/28/16 15:00 Urine Nitrite Negative (NEGATIVE) 11/28/16 15:00 Urine Bilirubin Negative (NEGATIVE) 11/28/16 15:00 Urine Urobilinogen Negative E.U./dl (0.2-1.0) 11/28/16 15:00 Ur Leukocyte Esterase Negative (NEGATIVE) 11/28/16 15:00 RPR Titer Nonreactive (NONREACTIVE) 11/29/16 06:00 HIV 1&2 Antibody Screen Negative 11/28/16 14:00 HIV P24 Antigen Negative 11/28/16 14:00 Assessment: 11/30/16 10:59 WITHDRAWAL SX Plan: CONTINUE DETOX
[2016-11-30] MEDS: chlordiazePOXIDE 5 MG CAPSULE PO SCH ×2 (17:05→22:14)
[2016-11-30] MEDS: THIAMINE HCL 100 MG TABLET (FP) PO SCH (22:14)
[2016-11-30] MEDS: BENZTROPINE MESYLATE 1 MG TABLET (FP) PO SCH (22:16)
[2016-12-01] MEDS: chlordiazePOXIDE 5 MG CAPSULE PO SCH ×2 (05:25→10:16)
[2016-12-01] MEDS: PRENATAL VITAMINS W/ FOLIC ACID TABLET (FP) PO SCH (10:15)
[2016-12-01] MEDS: NICOTINE 21 MG/24 HOURS TOPICAL PATCH TD SCH (10:17)
[2016-12-01] MEDS: LACTULOSE 20 GM/30 ML UDC (FOR ORAL USE ONLY) PO SCH ×3 (12:02→22:14)
[2016-12-01] MEDS ORDERED: HALOPERIDOL 2 MG TABLET PO STA ×2 (12:47→13:11)
[2016-12-01] MEDS ORDERED: diphenhydrAMINE HCL 25 MG CAPSULE (FP) PO STA (12:48)
[2016-12-01] MEDS ORDERED: HALOPERIDOL 1 MG TABLET (FP) PO PRN ×2 (12:49→13:09)
--- NOTE | 2016-12-01 13:31 | PN ---
BHS Progress Note (SOAP) Subjective: Fatigue, Tremors. Objective: PATIENT A & O X 3, OBSERVED AMBULATING ON UNIT. NO ACUTE DISTRESS. 12/01/16 13:27 Vital Signs Temperature 96.6 F L 12/01/16 09:50 Pulse Rate 74 12/01/16 09:50 Respiratory Rate 18 12/01/16 09:50 Blood Pressure 111/79 12/01/16 09:50 O2 Sat by Pulse Oximetry (%) Laboratory Tests 11/28/16 11/28/16 11/29/16 14:00 15:00 06:00 WBC 7.7 RBC 4.54 Hgb 13.9 Hct 42.0 MCV 92.6 MCHC 33.2 RDW 13.9 Plt Count 241 MPV 8.8 Sickle Cell Screen Negative Sodium Potassium Chloride Carbon Dioxide Anion Gap BUN Creatinine Creat Clearance w eGFR Random Glucose Calcium Total Bilirubin AST ALT Alkaline Phosphatase Ammonia Total Protein Albumin Urine Color Colorless Urine Appearance Clear Urine pH 8.0 D Ur Specific [place] 1.010 Urine Protein Negative Urine Glucose (UA) Negative Urine Ketones Negative Urine Blood Negative Urine Nitrite Negative Urine Bilirubin Negative Urine Urobilinogen Negative Ur Leukocyte Esterase Negative RPR Titer HIV 1&2 Antibody Screen Negative HIV P24 Antigen Negative 11/29/16 11/29/16 12/01/16 06:00 06:00 08:00 WBC RBC Hgb Hct MCV MCHC RDW Plt Count MPV Sickle Cell Screen Sodium 140 Potassium 4.4 Chloride 103 Carbon Dioxide 29 Anion Gap 8 BUN 10 D Creatinine 1.0 Creat Clearance w eGFR > 60 Random Glucose 91 Calcium 8.7 Total Bilirubin 0.6 AST 16 ALT 28 D Alkaline Phosphatase 57 Ammonia 46.28 H Total Protein 7.0 Albumin 3.8 Urine Color Urine Appearance Urine pH Ur Specific [place] Urine Protein Urine Glucose (UA) Urine Ketones Urine Blood Urine Nitrite Urine Bilirubin Urine Urobilinogen Ur Leukocyte Esterase RPR Titer Nonreactive HIV 1&2 Antibody Screen HIV P24 Antigen LABS NOTED. RESULT OF AMMONIA LEVEL DRAWN 12/01/2016 NOTED. 12/01/16 13:29 12/01/16 13:29 Assessment: 12/01/16 13:27 WITHDRAWAL SYMPTOMS. Plan: CONTINUE DETOX. START LACTULOSE, 20 GM PO TID, FIRST DOSE NOW. ADVISED PATIENT TO FOLLOW-UP WITH NEWSPAPER PHOTOGRAPHER IMMEDIATELY AFTER DISCHARGE FROM DETOX FOR GENERAL MEDICAL ASSESSMENT AND FOR ELEVATED AMMONIA LEVEL WHILE ADMITTED FOR DETOX.
[2016-12-01] MEDS ORDERED: LACTULOSE 20 GM/30 ML UDC (FOR ORAL USE ONLY) PO SCH (14:00)
[2016-12-01] MEDS: chlordiazePOXIDE HCL 10 MG CAPSULE PO SCH ×2 (17:13→22:14)
[2016-12-01] MEDS: THIAMINE HCL 100 MG TABLET (FP) PO SCH (22:13)
[2016-12-01] MEDS: BENZTROPINE MESYLATE 1 MG TABLET (FP) PO SCH (22:14)
[2016-12-01] MEDS ORDERED: diphenhydrAMINE HCL 25 MG CAPSULE (FP) PO PRN (23:04)
[2016-12-02] MEDS: chlordiazePOXIDE HCL 10 MG CAPSULE PO SCH ×2 (05:44→10:05)
[2016-12-02] MEDS: LACTULOSE 20 GM/30 ML UDC (FOR ORAL USE ONLY) PO SCH (05:45)
[2016-12-02 06:19] VITALS: PULSE 84
[2016-12-02] MEDS: NICOTINE 21 MG/24 HOURS TOPICAL PATCH TD SCH (10:05)
[2016-12-02] MEDS: PRENATAL VITAMINS W/ FOLIC ACID TABLET (FP) PO SCH (10:05)
[2016-12-02 11:09] VITALS: BP 115/82; TEMP 96.8
--- NOTE | 2016-12-02 15:07 | DS ---
[facility] Detox Discharge Summary Admission Date: 11/28/16 Discharge Date: 12/02/16 - History Present History: Alcohol Dependence, Cannabis Dependence, Cocaine Dependence Pertinent Past History: Denies Noted with hyperammonemia: continue lactulose, repeat ammonia level in AM - Physical Exam Results Vital Signs: Vital Signs Temperature 96.8 F L 12/02/16 11:04 Pulse Rate 84 12/02/16 11:04 Respiratory Rate 18 12/02/16 11:04 Blood Pressure 115/82 12/02/16 11:04 O2 Sat by Pulse Oximetry (%) Pertinent Admission Physical Exam Findings: Withdrawal symptoms Laboratory Tests 11/28/16 11/28/16 11/29/16 14:00 15:00 06:00 WBC 7.7 RBC 4.54 Hgb 13.9 Hct 42.0 MCV 92.6 MCHC 33.2 RDW 13.9 Plt Count 241 MPV 8.8 Sickle Cell Screen Negative Sodium Potassium Chloride Carbon Dioxide Anion Gap BUN Creatinine Creat Clearance w eGFR Random Glucose Calcium Total Bilirubin AST ALT Alkaline Phosphatase Ammonia Total Protein Albumin Urine Color Colorless Urine Appearance Clear Urine pH 8.0 D Ur Specific [place] 1.010 Urine Protein Negative Urine Glucose (UA) Negative Urine Ketones Negative Urine Blood Negative Urine Nitrite Negative Urine Bilirubin Negative Urine Urobilinogen Negative Ur Leukocyte Esterase Negative RPR Titer HIV 1&2 Antibody Screen Negative HIV P24 Antigen Negative 11/29/16 11/29/16 12/01/16 06:00 06:00 08:00 WBC RBC Hgb Hct MCV MCHC RDW Plt Count MPV Sickle Cell Screen Sodium 140 Potassium 4.4 Chloride 103 Carbon Dioxide 29 Anion Gap 8 BUN 10 D Creatinine 1.0 Creat Clearance w eGFR > 60 Random Glucose 91 Calcium 8.7 Total Bilirubin 0.6 AST 16 ALT 28 D Alkaline Phosphatase 57 Ammonia 46.28 H Total Protein 7.0 Albumin 3.8 Urine Color Urine Appearance Urine pH Ur Specific [place] Urine Protein Urine Glucose (UA) Urine Ketones Urine Blood Urine Nitrite Urine Bilirubin Urine Urobilinogen Ur Leukocyte Esterase RPR Titer Nonreactive HIV 1&2 Antibody Screen HIV P24 Antigen Labs noted: ammonia level 46.28 - Treatment Hospital Course: Detox Protocol Followed, Detoxed Safely, Responded well, Discharged Condition Good, Rehab Referral Accepted - Medication Discharge Medications: Ambulatory Orders Fluphenazine Decanoate [Prolixin Decanoate (Long-Acting Injection) -] 62.5 mg IM ASDIR MDD Q2 WEEKS 09/04/16 - Diagnosis (1) Alcohol dependence with uncomplicated withdrawal Status: Acute (2) Cannabis dependence, uncomplicated Status: Chronic (3) Nicotine dependence Status: Chronic Qualifiers: Nicotine product type: cigarettes Substance use status: in withdrawal Qualified Code(s): F17.213 - Nicotine dependence, cigarettes, with withdrawal (4) Schizoaffective disorder Status: Chronic (5) Cocaine dependence Status: Chronic (6) Hyperammonemia Status: Acute - AMA Did Patient Leave Against Medical Advice: No
== END 2016-12-02 11:25 | disposition home or self-care (01) | DRG 897 ==
LOC: YASAS 11:17 → Y3N 13:01
PROVIDERS: ADMIT Internal Medicine; ATTEND Internal Medicine
PROC: HZ2ZZZZ Detoxification Services for Substance Abuse Treatment (ICD-10-PCS; principal; 2016-12-02)
DX: F10.230 Alcohol dependence with withdrawal, uncomplicated (principal); F14.20 Cocaine dependence, uncomplicated; E72.20 Disorder of urea cycle metabolism, unspecified; F12.20 Cannabis dependence, uncomplicated; F17.210 Nicotine dependence, cigarettes, uncomplicated; F25.9 Schizoaffective disorder, unspecified
CPT/HCPCS: 36415; 80053; 81003; 82140; 85027; 85660; 86593; 87389; 93005; 93010